=== PATIENT | male | born 2000 | race Caucasian/White ===

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

== ENCOUNTER 2022-11-22 01:28 | Emergency (ER) | payer MEDICAID, SELFPAY ==
[2022-11-22 01:28] VITALS: BP 149/79; PULSE 106; RESP 18; TEMP 36.9; O2SAT 96; BMI 25.9
--- NOTE | 2022-11-22 01:51 | EX.ED.DYSGE1 ---
HPI History of Present Illness Chief Complaint: Ear Problem Informant: patient Onset/Context/Timing Onset: Yesterday Current Severity: Moderate Maximum Severity: Moderate Narrative Narrative: Patient presents secondary to right ear pain. He states he woke him sleep a couple hours ago with right ear pain. He is just getting over a cold. He denies history of frequent ear infections. PFSH PFS Medical History no medical history no medical history Home Medications amoxicillin 875 mg-potassium clavulanate 125 mg tablet 1 tab PO BID #20 tabs 11/22/22 [Rx Last Taken Unknown] naproxen 500 mg tablet 500 mg PO BID PRN #20 tabs 11/22/22 [Rx Last Taken Unknown] Allergy/AdvReac Type Severity Reaction Status Date / Time No Known Allergies Allergy Verified 09/19/18 11:28 Surgical History no surgical history Social History Smoking Status: Never smoker ROS ROS ED Constitutional Constitutional ED: Denies chills or fever(s) Eyes Eyes: Denies change in vision or discharge from eye(s) ENT ENT ED: Reports ear pain right; Denies discharge from eye(s), rhinorrhea or sore throat Cardiovascular Cardiovascular: Denies chest pain Respiratory/Chest Respiratory/Chest: Denies cough or dyspnea Gastrointestinal Gastrointestinal: Denies abdominal pain, diarrhea, nausea or vomiting Genitourinary Genitourinary ED: Denies dysuria Musculoskeletal Musculoskeletal: Denies back pain or extremity pain Integumentary Denies Abrasions or rash Neurologic Neurologic: Denies headache(s) or weakness Psychiatric Psychiatric: Denies anxiety or depression Allergic/Immunologic Allergic/Immunologic ED: Denies lip swelling or urticaria EXAM Physical Exam Const Vital Signs: 11/22/22 01:28 Temperature 98.4 F Temperature Source Temporal Pulse Rate 106 H Respiratory Rate 18 Blood Pressure 149/79 H Blood Pressure Mean 102 Pulse Ox 96 Oxygen Delivery Method Room Air Positive well nourished and well developed General Appearance ED: well developed HEENT Reports normocephalic and head/scalp atraumatic HEENT Narrative: Left TM clear. Right TM bulging with pus and air bubbles behind the tympanic membrane. Mild erythema in the canal. Eyes PERRL and EOMs intact bilaterally Neck supple Chest Wall inspection of chest normal and palpation of chest normal Resp normal respiratory effort and clear to auscultation bilaterally Cardio regular rate and regular rhythm GI normal to inspection, nondistended, normoactive bowel sounds Palpation: soft Extremity normal to inspection Neuro oriented x3 and no sensory deficits noted Sensorium / Orientation: alert Motor Exam: strength 5/5 throughout Psych mental status grossly normal Skin no rashes or lesions noted MDM MDM MDM Narrative Medical decision making narrative: Patient has evidence of otitis media. He will be treated with a course of Augmentin, first dose given here. He is also given naproxen for pain. Return instructions given. Discharge Plan Triage Chief Complaint: Ear Problem ED Provider: Yaz Galvez Dx/Rx/DC Orders Clinical Impression: Otitis media Instructions: ED Otitis Media Antibiotic ... Prescriptions: New amoxicillin-pot clavulanate 875-125 mg tablet 1 tab PO BID Qty: 20 0RF naproxen 500 mg tablet 500 mg PO BID PRN Qty: 20 0RF Primary Care Provider: Telma Calles NP Referrals: Telma Calles NP, TURRET LATHE SET UP OPERATOR-C [Primary Care Provider] - 1-2 Weeks Disposition Disposition: Home, Self Care Discharge Date/Time: 11/22/22 02:03
[2022-11-22] MEDS: Naproxen 500 MG Tablet PO (02:01)
[2022-11-22] MEDS: Amox/Clavulanate 875 MG Tablet PO (02:01)
== END 2022-11-22 02:03 | disposition home or self-care (01) ==
LOC: ED 02:02
PROVIDERS: Emergency Provider Emergency Medicine; PCP Nurse Practitioner Family; Referring Provider Emergency Medicine; Visit Provider Emergency Medicine
DX: H66.91 Otitis media, unspecified, right ear (principal)
CPT/HCPCS: 99283

== ENCOUNTER 2023-04-23 17:14 | Emergency (ER) | payer MEDICAID, SELFPAY ==
[2023-04-23 17:15] VITALS: BP 134/83; PULSE 64; RESP 14; TEMP 36.6; O2SAT 98; BMI 29.5
--- NOTE | 2023-04-23 20:23 | EX.ED.GENINJ ---
HPI History of Present Illness Chief Complaint: Bite Detail of Chief Complaint: Dog bite Informant: patient Onset/Context/Timing Onset: Today Narrative Narrative: Patient presents with a dog bite to his nose. He states he went to a friend's house. As he was entering the house he put his hand down for the dog is significant. The dog lunged at his face and bit his nose. PFSH PFSH Medical History no medical history no medical history Home Medications amoxicillin 875 mg-potassium clavulanate 125 mg tablet 1 tab PO BID #20 tabs 11/22/22 [Rx Last Taken Unknown] naproxen 500 mg tablet 500 mg PO BID PRN #20 tabs 11/22/22 [Rx Last Taken Unknown] amoxicillin 875 mg-potassium clavulanate 125 mg tablet 1 tab PO BID #10 tabs 04/23/23 [Rx Last Taken Unknown] Allergy/AdvReac Type Severity Reaction Status Date / Time No Known Allergies Allergy Verified 04/23/23 20:10 Social History Smoking Status: Current every day smoker tobacco type: cigarettes ROS ROS ED Constitutional Constitutional ED: Denies chills or fever(s) Eyes Eyes: Denies discharge from eye(s) ENT ENT ED: Denies discharge from eye(s), rhinorrhea or sore throat Cardiovascular Cardiovascular: Denies chest pain or palpitations Respiratory/Chest Respiratory/Chest: Denies cough or dyspnea Gastrointestinal Gastrointestinal: Denies abdominal pain, nausea or vomiting Musculoskeletal Musculoskeletal: Denies back pain or extremity pain Integumentary Reports other Details: Dog bite to nose ; Denies Abrasions or rash Neurologic Neurologic: Denies headache(s) or weakness Psychiatric Psychiatric: Denies anxiety or depression Allergic/Immunologic Allergic/Immunologic ED: Denies lip swelling or urticaria EXAM Physical Exam Const Vital Signs: 04/23/23 17:15 Temperature 98 F Temperature Source Temporal Pulse Rate 64 Respiratory Rate 14 Blood Pressure 134/83 H Blood Pressure Mean 100 Pulse Ox 98 Oxygen Delivery Method Room Air Positive well nourished and well developed General Appearance ED: well developed HEENT HEENT Narrative: 1.5 cm laceration across the left nare. Borders are well approximated and clean. There is a small laceration across the base of the nose. Minimal bleeding from the site. Teeth are stable. No lip laceration noted. Eyes EOMs intact bilaterally Neck full ROM Chest Wall inspection of chest normal Resp normal respiratory effort and clear to auscultation bilaterally Cardio regular rhythm Rate: regular rate GI normal to inspection, nondistended, normoactive bowel sounds Extremity normal to inspection Skin Skin Narrative: As above. MDM MDM MDM Narrative Medical decision making narrative: Patient be treated with 5-day course of Augmentin. Wounds were cleansed. We discussed not suturing the wounds as this is a dog bite. The wound edges are clean at this time and I think there will be very minimal scarring. Patient is comfortable the plan. Return instructions given. Discharge Plan Triage Chief Complaint: Bite ED Provider: Yaz Galvez Dx/Rx/DC Orders Clinical Impression: Dog bite Instructions: ED Dog Bite Prescriptions: New amoxicillin-pot clavulanate 875-125 mg tablet 1 tab PO BID Qty: 10 0RF No Action amoxicillin-pot clavulanate 875-125 mg tablet 1 tab PO BID Qty: 20 0RF naproxen 500 mg tablet 500 mg PO BID PRN Qty: 20 0RF Primary Care Provider: Telma Calles NP Referrals: Telma Calles NP, MD DO [facility] [Primary Care Provider] - As Needed Disposition Disposition: Home, Self Care
[2023-04-23 20:29] VITALS: PULSE 91; RESP 14; O2SAT 98
[2023-04-23] MEDS: Amox/Clavulanate 875 MG Tablet PO (20:41)
== END 2023-04-23 20:44 | disposition home or self-care (01) ==
LOC: ED 20:34
PROVIDERS: Emergency Provider Emergency Medicine; PCP Nurse Practitioner Family; Visit Provider Emergency Medicine
DX: S00.37XA Other superficial bite of nose, initial encounter (principal); F17.210 Nicotine dependence, cigarettes, uncomplicated; W54.0XXA Bitten by dog, initial encounter; Y92.018 Other place in single-family (private) house as the place of occurrence of the external cause
CPT/HCPCS: 99283

== ENCOUNTER 2024-05-16 18:52 | Emergency (ER) | payer MEDICAID, SELFPAY ==
[2024-05-16 18:53] VITALS: BP 158/114; PULSE 66; RESP 29; TEMP 36.1; O2SAT 98; BMI 28.6
--- NOTE | 2024-05-16 18:54 | RAD_ITS ---
STUDY: X-RAY - RIGHT SHOULDER REASON FOR EXAM: Male, 24 years old. FALL TECHNIQUE: 2 view(s) of the shoulder. COMPARISON: None. FINDINGS: Normal glenohumeral articulation. There is widening of the AC joint, with displacement of the clavicle, consistent with a Type III acromioclavicular joint separation. Normal acromion. Normal humeral head and visualized proximal humerus. The soft tissue structures are unremarkable. There is no demonstrated fracture. Normal visualized pulmonary apex. RAD/Shoulder min 2 Views IMPRESSION: Acromioclavicular separation. Electronically Signed: Les Warner MD at 19:39 EDT ,
--- NOTE | 2024-05-16 19:47 | EDS_ITS ---
HPI History of Present Illness Chief Complaint: Disclocation [facility] Home Medications ?Medication ?Instructions ?Recorded ?Last Taken ?Type amoxicillin 875 mg-potassium 1 tab PO BID #20 tabs 11/22/22 Unknown Rx clavulanate 125 mg tablet naproxen 500 mg tablet 500 mg PO BID PRN #20 tabs 11/22/22 Unknown Rx amoxicillin 875 mg-potassium 1 tab PO BID #10 tabs 04/23/23 Unknown Rx clavulanate 125 mg tablet Allergy/AdvReac Type Severity Reaction Status Date / Time No Known Allergies Allergy Verified 05/16/24 18:52 Social History Smoking Status: Current every day smoker tobacco type: cigarettes EXAM Physical Exam Narrative Exam Narrative: HISTORY OF PRESENT ILLNESS: 24-year-old male presents with right shoulder pain. He notes he fell riding a skateboard. Notes he fell onto his right shoulder. No significant right shoulder pain. He also notes abrasions right hip. REVIEW OF SYSTEMS: Pertinent positives: Right shoulder pain Pertinent negatives: Head trauma, loss of consciousness PHYSICAL EXAM: Nursing triage notes reviewed, Vital signs reviewed Constitutional: please see mdm HENT: MMM Eyes: Pupils equal round and reactive to light, Extraocular muscles intact Neck: No stridor, no JVD, full neck ROM Lungs: Clear to auscultation, No wheezing or rales. No increased work of breathing, no conversational dyspnea, no accessory muscle use, no nasal flaring. No respiratory distress noted Heart: Regular rate and rhythm, No murmurs, No rubs and No gallops, 2+ distal pulses (radial, femoral, posterior tibial) in all extremities Abdomen: Soft, there is no tenderness, rigidity, rebound or guarding, no obvious peritoneal signs, no palpable pulsatile abdominal masses, no auscultated abdominal bruit : No CVAT Extremities: No edema, no step-offs deformities of his right shoulder. No pain with logroll or flexion extension of the right hip. Neuro: Left hand exam. Intact active neurofunction. Skin: No rash or lesions noted MEDICAL DECISION MAKING: Chief Complaint: Right shoulder pain MDM Narrative: Patient was distally hypertensive with blood pressure 158/114, tachypneic at rest a rate of 29, afebrile nontoxic-appearing. Exam without focal deficits of right extremity. Noted AC joint. X-ray was obtained in triage. I considered the following differential diagnosis: Fracture, dislocation, contusion ALL IMAGES (IF OBTAINED) HAVE BEEN PERSONALLY REVIEWED AND INTERPRETED BY MYSELF. X x-ray was read reviewed by myself shows no evidence of obvious shoulder dislocation. Radiologist agrees of my interpretation and notes AC joint separation Pain medicine given. Splint applied. Time ibuprofen instructions given for home-going. Adhesive capsulitis instructions given The patient and/or family, caregivers express understanding. The patient and/or family, caregivers agrees with the plan. Shared decision making: I will have a discussion with the patient and or visitors regarding risk/benefits of further testing or admission. They will be made aware of of the risk/benefits inherent in this decision they will be given the opportunity to voice understanding. Total critical care time today provided was at least 0 minutes. This excludes separately billable procedures. Critical care time (if documented) is secondary to the patient having high probability of clinically significant/life threatening deterioration in the patient's condition which required my urgent intervention. Impression: 1. Right shoulder pain 2. Right AC joint separation Dispo: Discharge home This note was generated with [employer] dictation software. It may contain incorrect words, spelling, and punctuation that were not noted in review of the chart prior to signing. Const Vital Signs: 05/16/24 18:53 Temperature 97 F L Temperature Source Temporal Pulse Rate 66 Respiratory Rate 29 H Blood Pressure 158/114 H Blood Pressure Mean 128 Pulse Ox 98 Oxygen Delivery Method Room Air MDM MDM Radiography Diagnostic Testing: Clinical Impression(s) from Imaging Studies Shoulder X-Ray 05/16/24 18:54 IMPRESSION: Acromioclavicular separation. Electronically Signed: Les Warner MD at 19:39 EDT , Discharge Plan Triage Chief Complaint: Disclocation ED Provider: Dg Amanda Dx/Rx/DC Orders Instructions: ED Sprain AC Joint Prescriptions: No Action amoxicillin-pot clavulanate 875-125 mg tablet 1 tab PO BID Qty: 20 0RF naproxen 500 mg tablet 500 mg PO BID PRN Qty: 20 0RF amoxicillin-pot clavulanate 875-125 mg tablet 1 tab PO BID Qty: 10 0RF Primary Care Provider: Telma Calles NP Referrals: Telma Calles NP, [employer] [Primary Care Provider] - Activity Restrictions/Additional Instructions: Thank you for trusting us with your care today! Please take Tylenol (2 pills, 650 mg), ibuprofen (2 pills, 400 mg) every 6 hours as needed for pain and fever control. Please return to the emergency department if your symptoms change or worsen. Please follow with your primary care physician and/or sports medicine for further outpatient evaluation and management. You can follow-up at the [facility]. Please call [phone] to schedule an appointment Print Language: Faroese Disposition Disposition: Home, Self Care
[2024-05-16 19:52] VITALS: BP 120/70; PULSE 65; RESP 16; O2SAT 98
[2024-05-16 20:00] VITALS: BP 114/66; PULSE 89; RESP 18; O2SAT 98
--- NOTE | 2024-05-17 00:20 | EDS_ITS ---
HPI History of Present Illness Chief Complaint: Disclocation [facility] Home Medications ?Medication ?Instructions ?Recorded ?Last Taken ?Type amoxicillin 875 mg-potassium 1 tab PO BID #20 tabs 11/22/22 Unknown Rx clavulanate 125 mg tablet naproxen 500 mg tablet 500 mg PO BID PRN #20 tabs 11/22/22 Unknown Rx amoxicillin 875 mg-potassium 1 tab PO BID #10 tabs 04/23/23 Unknown Rx clavulanate 125 mg tablet Allergy/AdvReac Type Severity Reaction Status Date / Time No Known Allergies Allergy Verified 05/16/24 18:52 Social History Smoking Status: Current every day smoker tobacco type: cigarettes EXAM Physical Exam Const Vital Signs: 05/16/24 18:53 05/16/24 19:52 05/16/24 20:00 Temperature 97 F L Temperature Source Temporal Pulse Rate 66 65 89 Respiratory Rate 29 H 16 18 Blood Pressure 158/114 H 120/70 114/66 Blood Pressure Mean 128 86 82 Pulse Ox 98 98 98 Oxygen Delivery Method Room Air Room Air Room Air MDM MDM MDM Narrative Medical decision making narrative: HISTORY OF PRESENT ILLNESS: 24-year-old male presents with concern for right shoulder dislocation after mechanical fall from skateboard just prior to arrival. Denies head trauma or loss of consciousness. REVIEW OF SYSTEMS: Pertinent positives: Right shoulder pain Pertinent negatives: Head trauma, loss of consciousness, vomiting PHYSICAL EXAM: Nursing triage notes reviewed, Vital signs reviewed Constitutional: please see mdm HENT: MMM, atraumatic, normocephalic Eyes: Pupils equal round and reactive to light, Extraocular muscles intact Neck: No stridor, no JVD, full neck ROM Lungs: Clear to auscultation, No wheezing or rales. No increased work of breathing, no conversational dyspnea, no accessory muscle use, no nasal flaring. No respiratory distress noted Heart: Regular rate and rhythm, No murmurs, No rubs and No gallops, 2+ distal pulses (radial, femoral, posterior tibial) in all extremities Abdomen: Soft, there is no tenderness, rigidity, rebound or guarding, no obvious peritoneal signs, no palpable pulsatile abdominal masses, no auscultated abdominal bruit : No CVAT Extremities: No edema, obvious deformity to right AC joint, Neuro: Intact 5/5 strength with ok sign (median), intact finger abduction ( ulnar) intact wrist extension (radial n). Intact sensation in the radial, ulnar, and median nerve distributions. Intact active neurofunction. Skin: No rash or lesions noted, no open fracture MEDICAL DECISION MAKING: Chief Complaint: Shoulder pain MDM Narrative: Patient was hemodynamically stable, afebrile, nontoxic-appearing. Exam with obvious AC joint separation. I considered the following differential diagnosis: Right shoulder fracture, dislocation, AC joint separation ALL IMAGES (IF OBTAINED) HAVE BEEN PERSONALLY REVIEWED AND INTERPRETED BY MYSELF. X-ray of the right shoulder was read to be present myself shows AC joint separation. Radiologist agrees my interpretation. Patient was provided with a sling, Tylenol, ibuprofen instructions given. Strict return precautions and follow-up instructions were also discussed. The patient and/or family, caregivers express understanding. The patient and/or family, caregivers agrees with the plan. Shared decision making: I will have a discussion with the patient and or visitors regarding risk/benefits of further testing or admission. They will be made aware of of the risk/benefits inherent in this decision they will be given the opportunity to voice understanding. Total critical care time today provided was at least 0 minutes. This excludes separately billable procedures. Critical care time (if documented) is secondary to the patient having high probability of clinically significant/life threatening deterioration in the patient's condition which required my urgent intervention. Impression: 1. Right shoulder pain 2. Right AC joint separation Dispo: Discharge home This note was generated with [employer] dictation software. It may contain incorrect words, spelling, and punctuation that were not noted in review of the chart prior to signing. Radiography Diagnostic Testing: Clinical Impression(s) from Imaging Studies Shoulder X-Ray 05/16/24 18:54 IMPRESSION: Acromioclavicular separation. Electronically Signed: Les Warner MD at 19:39 EDT , Discharge Plan Triage Chief Complaint: Disclocation ED Provider: Dg Amanda Dx/Rx/DC Orders Instructions: ED Sprain AC Joint Prescriptions: No Action amoxicillin-pot clavulanate 875-125 mg tablet 1 tab PO BID Qty: 20 0RF naproxen 500 mg tablet 500 mg PO BID PRN Qty: 20 0RF amoxicillin-pot clavulanate 875-125 mg tablet 1 tab PO BID Qty: 10 0RF Stand Alone Forms: ED Work / School Excuse Primary Care Provider: Telma Calles NP Referrals: Telma Calles NP, [facility] [Primary Care Provider] - Activity Restrictions/Additional Instructions: Thank you for trusting us with your care today! Please take Tylenol (2 pills, 650 mg), ibuprofen (2 pills, 400 mg) every 6 hours as needed for pain and fever control. Please return to the emergency department if your symptoms change or worsen. Please follow with your primary care physician and/or sports medicine for further outpatient evaluation and management. You can follow-up at the [place] [facility]. Please call [phone] to schedule an appointment Print Language: Burundian Disposition Disposition: Home, Self Care Discharge Date/Time: 05/16/24 20:53
== END 2024-05-16 20:53 | disposition home or self-care (01) ==
PROVIDERS: Emergency Provider Emergency Medicine; PCP Nurse Practitioner Family; Visit Provider Emergency Medicine
DX: S43.004A Unspecified dislocation of right shoulder joint, initial encounter (principal); F17.210 Nicotine dependence, cigarettes, uncomplicated; V00.131A Fall from skateboard, initial encounter
CPT/HCPCS: 73030; 99283